=== PATIENT | male | born 1985 | race African-American/Black ===

== ENCOUNTER 2019-10-04 09:44 | Emergency (ER) | payer OTHER ==
[2019-10-04 10:10] VITALS: TEMP 99.5; BMI 48.3
--- NOTE | 2019-10-04 10:13 | PDOC ---
History of Present Illness - General Chief Complaint: Shortness of Breath Stated Complaint: CP/SOB Time Seen by Provider: 10/04/19 10:12 History Source: Patient Exam Limitations: No Limitations - History of Present Illness Initial Comments: 10/04/19 10:23 CHIEF COMPLAINT: Chest pain HISTORY OF PRESENT ILLNESS: This is an otherwise healthy 34-year-old male referred from urgent care, where he presented for evaluation of T 102, chills, and chest discomfort. There, EKG demonstrated ST elevations in anterolateral leads as well as RSR' in V1, right axis deviation, and left atrial enlargement. Patient reports chest pain worse with leaning forward and shortness of breath. Here, the patient endorses 2 days of fever (T-max 102 last night), chills, shortness of breath, worsening dyspnea on exertion, and chest tightness which seems to be worse if leaning forward. He denies nausea, dizziness, diaphoresis. He denies calf/leg pain or swelling. He denies travel or known sick contacts. Family History: Mother: HTN, Father: colon ca; no family history of VTE, cardiac disease Smoking: None V/s on arrival are notable for low grade oral temp 99.8. PCP: Dr. Radha Hogan REVIEW OF SYSTEMS: GENERAL/CONSTITUTIONAL: No fever or chills. No weakness. No weight change. HEAD, EYES, EARS, NOSE AND THROAT: No change in vision. No ear pain or discharge. No sore throat. CARDIOVASCULAR: Chest tightness, dyspnea on exertion. RESPIRATORY: No cough or wheezing. GASTROINTESTINAL: No nausea, vomiting, diarrhea or constipation. GENITOURINARY: No dysuria, frequency, or change in urination. MUSCULOSKELETAL: No joint or muscle swelling or pain. No neck or back pain. SKIN: No rash or easy bruising. NEUROLOGIC: No headache, vertigo, loss of consciousness, or loss of sensation. PSYCHIATRIC: No depression or anxiety. ENDOCRINE: No increased thirst. No abnormal weight change. HEMATOLOGIC/LYMPHATIC: No anemia, easy bleeding, or history of blood clots. ALLERGIC/IMMUNOLOGIC: No hives or skin allergy. No latex allergy. PHYSICAL EXAM: GENERAL: The patient is awake, alert, and fully oriented, in no acute distress. HEAD: Normal with no signs of trauma. ENT: Pupils equal, round and reactive to light, extraocular movements intact, sclera anicteric, conjunctiva clear. Neck supple. LUNGS: Clear to auscultation bilaterally. Normal excursion. No respiratory distress or use of accessory muscles. CV: Tachycardic (120 on exam), RRR, S1/S2, no MRG. Cap refill < 2 sec. ABDOMEN: Soft, non-distended, non-tender. EXTREMITIES: Normal range of motion, no edema. NEUROLOGICAL: Normal speech, normal gait. CN II-XII grossly intact. PSYCH: Normal mood, normal affect. SKIN: Warm, dry, normal turgor, no rashes or lesions noted. 10/04/19 11:10 10/04/19 11:11 Past History - Past Medical History Allergies/Adverse Reactions: Allergies Allergy/AdvReac Type Severity Reaction Status Date / Time No Known Allergies Allergy Verified 11/29/11 08:23 Home Medications: Ambulatory Orders Colchicine [Colcrys] 0.6 mg PO DAILY #14 tablet 10/04/19 Ibuprofen 800 mg PO Q8H #30 tablet 10/04/19 Anemia: No Asthma: No Cancer: No Cardiac Disorders: No CVA: No COPD: No CHF: No Dementia: No Diabetes: No GI Disorders: No Disorders: No HTN: No Hypercholesterolemia: No Liver Disease: No Seizures: No Thyroid Disease: No - Surgical History Abdominal Surgery: No Appendectomy: No Cardiac Surgery: No Cholecystectomy: No Lung Surgery: No Neurologic Surgery: No Orthopedic Surgery: Yes (09/04,left wrist arthroscopy) - Immunization History Immunization Up to Date: No - Psycho Social/Smoking Cessation Hx Smoking History: Never smoked Have you smoked in the past 12 months: No Information on smoking cessation initiated: No Hx Alcohol Use: No Drug/Substance Use Hx: No Substance Use Type: None Hx Substance Use Treatment: No *Physical Exam - Vital Signs Last Vital Signs Temp Pulse Resp BP Pulse Ox 99.5 F 84 18 112/77 98 10/04/19 10:08 10/04/19 10:08 10/04/19 10:08 10/04/19 10:08 10/04/19 10:08 ED Treatment Course - LABORATORY CBC & Chemistry Diagram: 10/04/19 10:40 10/04/19 10:40 Medical Decision Making - Medical Decision Making 10/04/19 11:08 A/P: 34-year-old male with multiple symptoms including fever, chest pain, and dyspnea on exertion/shortness of breath. Differential includes but is not limited to: Pericarditis, viral myocarditis, less likely PE or ACS. 1. Chest x-ray 2. Labs including CBC, CMP, cardiac profile, d-dimer, UA, influenza swab 3. Echocardiogram 4. Discussed with Dr. Aden explosion welder for cardiology and reviewed EKG-agrees with above, will re-discuss pending cardiac enzyme results 10/04/19 12:24 CXR: no acute patology. Troponin negative. D-dimer elevated at 1777; CTA ordered. 10/04/19 13:13 Echocardiogram reviewed and interpreted by cardiology: Trace pericardial effusion, not hemodynamically significant. LVEF: 55 to 60%. Trace mitral regurgitation. 10/04/19 15:12 CTA negative for PE. Discussed with cardiology will treat with ibuprofen/ colchicine. RSV sent. Patient to follow-up with PCP/cardiology next week. Return precautions reviewed. Discharge - Discharge Information Problems reviewed: Yes Clinical Impression/Diagnosis: Chest pain Condition: Stable Disposition: HOME - Admission No - Additional Discharge Information Prescriptions: Colchicine [Colcrys] 0.6 mg PO DAILY #14 tablet Ibuprofen 800 mg PO Q8H #30 tablet - Follow up/Referral Referrals: Radha Hogan MD [Primary Care Provider] - 3 days Walker Aden MD [Staff Physician] - 1 week (Cardiology) - Patient Discharge Instructions Patient Printed Discharge Instructions: DI for Pericarditis Additional Instructions: You were seen today for chest pain, fever, and abnormal electrocardiogram, likely related to pericarditis from an underlying viral infection. Your CT scan of the chest did not show any pulmonary emboli (blood clots in the lungs) and echocardiogram showed normal heart function with a very small fluid collection around the heart. Your flu test was negative. Take ibuprofen and colchicine as prescribed with food. It is important that you follow-up next week with Dr. Hogan and/are with Dr. Aden of cardiology for reevaluation. Please return here if you develop worsening chest pain, shortness of breath, or any other concerning symptoms. - Post Discharge Activity Work/Back to School Note: Back to Work
[2019-10-04 11:11] LABS: BASO % 0.2 % (0-2.0); EOS % 0.1 % (0-4.5); HEMATOCRIT 40.6 % (35.4-49); LYMPH % 8.6 % (8-40); MCH 22.5 pg (25.7-33.7); MCHC 31.9 g/dl (32.0-35.9); MEAN CELL VOLUME 70.6 fl (80-96); MEAN PLT VOLUME 9.9 fl (7.5-11.1); MONO % 6.8 % (3.8-10.2); NEUT % 84.3 % (42.8-82.8); PLATELET COUNT 163 K/MM3 (134-434); RBC 5.76 M/mm3 (4.00-5.60); RDW 13.9 % (11.9-15.9); WHITE BLOOD COUNT 10.4 K/mm3 (4.0-10.0)
[2019-10-04 11:13] LABS: EPI CELLS 1.8 /HPF (0-5/HPF); HYALINE CASTS 7 /lpf (0-8); PH,URINE 6.5 (5.0-8.0); URINE APPEARANCE CLEAR; URINE BACTERIA 0.5 /hpf (NEGATIVE); URINE BILIRUBIN 1+ (NEGATIVE); URINE COLOR DK YELLOW; URINE GLUCOSE (UA) NEGATIVE (NEGATIVE); URINE KETONE 1+ (NEGATIVE); URINE LEUK ESTERASE NEGATIVE (NEGATIVE); URINE NITRITE NEGATIVE (NEGATIVE); URINE PROTEIN 2+ (NEGATIVE); URINE RBC 8 /hpf (0-4); URINE WBC 1 /hpf (0-5)
[2019-10-04 11:33] LABS: INR 1.31 (0.83-1.09); PROTHROMBIN TIME (PATIENT) 15.5 SEC (9.7-13.0)
[2019-10-04 11:35] LABS: ALBUMIN 3.8 g/dl (3.4-5.0); ALK PHOS 70 U/L (45-117); ANION GAP 4 MMOL/L (8-16); BILIRUBIN,TOTAL 0.8 mg/dL (0.2-1); BLOOD UREA NITROGEN 11.6 mg/dL (7-18); CALCIUM 9.3 mg/dL (8.5-10.1); CHLORIDE 100 mmol/L (98-107); CO2 31 mmol/L (21-32); CREATININE 0.9 mg/dL (0.55-1.3); GLUCOSE,RANDOM 87 mg/dL (74-106); POTASSIUM 4.3 mmol/L (3.5-5.1); SGOT/AST 16 U/L (15-37); SGPT/ALT 26 U/L (13-61); SODIUM 135 mmol/L (136-145); TOT PROT 7.9 g/dl (6.4-8.2)
--- NOTE | 2019-10-04 11:52 | EKG ---
Test Reason : Blood Pressure : / mmHG Vent. Rate : 089 BPM Atrial Rate : 089 BPM P-R Int : 168 ms QRS Dur : 084 ms QT Int : 336 ms P-R-T Axes : 043 108 048 degrees QTc Int : 408 ms NORMAL SINUS RHYTHM LEFT ATRIAL ENLARGEMENT RIGHTWARD AXIS ST ELEVATION, CONSIDER EARLY REPOLARIZATION, PERICARDITIS, OR INJURY ABNORMAL ECG NO PREVIOUS ECGS AVAILABLE Confirmed by HONG LUNA MD ([id number]) on 10/04/2019 11:52:08 AM Referred By: Confirmed By:HONG LUNA MD
--- NOTE | 2019-10-04 12:12 | PDOC ---
*Physical Exam - Vital Signs Last Vital Signs Temp Pulse Resp BP Pulse Ox 99.5 F 84 18 112/77 98 10/04/19 10:08 10/04/19 10:08 10/04/19 10:08 10/04/19 10:08 10/04/19 10:08 ED Treatment Course - LABORATORY CBC & Chemistry Diagram: 10/04/19 10:40 10/04/19 10:40 - ADDITIONAL ORDERS Additional order review: Laboratory Results 10/04/19 10/04/19 10/04/19 10:40 10:40 10:40 PT with INR 15.50 H INR 1.31 H D-Dimer 1777 H Sodium Potassium Chloride Carbon Dioxide Anion Gap BUN Creatinine Est GFR (CKD-EPI)AfAm Est GFR (CKD-EPI)NonAf Random Glucose Calcium Total Bilirubin AST ALT Alkaline Phosphatase Creatine Kinase Troponin I Total Protein Albumin Urine Color Dk yellow Urine Appearance Clear Urine pH 6.5 Ur Specific [place] 1.039 H Urine Protein 2+ H Urine Glucose (UA) Negative Urine Ketones 1+ H Urine Blood Negative Urine Nitrite Negative Urine Bilirubin 1+ H Urine Urobilinogen 1.0 Ur Leukocyte Esterase Negative Urine WBC (Auto) 1 Urine RBC (Auto) 8 Urine Casts (Auto) 7 U Epithel Cells (Auto) 1.8 Urine Bacteria (Auto) 0.5 10/04/19 10:40 PT with INR INR D-Dimer Sodium 135 L Potassium 4.3 Chloride 100 Carbon Dioxide 31 Anion Gap 4 L BUN 11.6 Creatinine 0.9 Est GFR (CKD-EPI)AfAm 127.80 Est GFR (CKD-EPI)NonAf 110.27 Random Glucose 87 Calcium 9.3 Total Bilirubin 0.8 AST 16 ALT 26 Alkaline Phosphatase 70 Creatine Kinase 99 Troponin I < 0.02 Total Protein 7.9 Albumin 3.8 Urine Color Urine Appearance Urine pH Ur Specific [place] Urine Protein Urine Glucose (UA) Urine Ketones Urine Blood Urine Nitrite Urine Bilirubin Urine Urobilinogen Ur Leukocyte Esterase Urine WBC (Auto) Urine RBC (Auto) Urine Casts (Auto) U Epithel Cells (Auto) Urine Bacteria (Auto) 10/04/19 10:40 RBC 5.76 H MCV 70.6 L MCHC 31.9 L RDW 13.9 MPV 9.9 Neutrophils % 84.3 H Lymphocytes % 8.6 Monocytes % 6.8 Eosinophils % 0.1 Basophils % 0.2 Medical Decision Making - Medical Decision Making 10/04/19 12:09 34-year-old male presenting to the emergency department with a complaint of chest pain. Patient noted fever 2 days ago. Yesterday began to have chest pain which he describes as squeezing, midsternal, no radiation. Patient notes exertional dyspnea Patient has had a cough, nonproductive Pt seen by Midlevel Provider under my direct supervision Pt interviewed and examined Patient is awake and alert Heart is regular Lungs are clear Ancillary studies reviewed EKG: Sinus rhythm, rate of 89 bpm, rightward axis, diffuse ST elevations, no ST depressions No pathological Q waves Laboratory Tests 10/04/19 10/04/19 10/04/19 10:40 10:40 10:40 WBC 10.4 H Hgb 13.0 Hct 40.6 Plt Count 163 D-Dimer BUN 11.6 Creatinine 0.9 Creatine Kinase 99 Troponin I < 0.02 Influenza A (Rapid) Negative Influenza B (Rapid) Negative 10/04/19 10:40 WBC Hgb Hct Plt Count D-Dimer 1777 H BUN Creatinine Creatine Kinase Troponin I Influenza A (Rapid) Influenza B (Rapid) Call placed to cardiology Copy patient's EKG sent to Dr. Aden Patient's d-dimer is elevated Will CTA Pt seen in the ER by Dr. Aden CTA negative for PE Will discharge to home I agree with plan as outlined by Midlevel Provider Clinical impression: pericarditis, initial presentation Discharge - Discharge Information Problems reviewed: Yes Clinical Impression/Diagnosis: Chest pain Condition: Stable Disposition: HOME - Admission Yes - Additional Discharge Information Prescriptions: Colchicine [Colcrys] 0.6 mg PO DAILY #14 tablet Ibuprofen 800 mg PO TID #30 tablet - Follow up/Referral Referrals: Radha Hogan MD [Primary Care Provider] - 3 days Walker Aden MD [Staff Physician] - 1 week (Cardiology) - Patient Discharge Instructions Patient Printed Discharge Instructions: DI for Pericarditis Additional Instructions: You were seen today for chest pain, fever, and abnormal electrocardiogram, likely related to pericarditis from an underlying viral infection. Your CT scan of the chest did not show any pulmonary emboli (blood clots in the lungs) and echocardiogram showed normal heart function with a very small fluid collection around the heart. Your flu test was negative. Take ibuprofen and colchicine as prescribed with food. It is important that you follow-up next week with Dr. Hogan and/are with Dr. Aden of cardiology for reevaluation. Please return here if you develop worsening chest pain, shortness of breath, or any other concerning symptoms. - Post Discharge Activity Work/Back to School Note: Back to Work
--- NOTE | 2019-10-04 12:55 | ECHO ---
Name: JENNIE SANCHEZ Exam:Adult Echocardiogram Study Date: 10/04/2019 11:58 AM Age: 34 yrs Height: 76 in Weight: 180 lb BSA: 2.1 m2 MMode/2D Measurements & Calculations IVSd: 1.1 cm Ao root diam: 3.1 cm LVIDd: 3.7 cm LA dimension: 2.5 cm LVIDs: 2.5 cm ACS: 2.0 cm LVPWd: 1.0 cm EDV(Teich): 59.1 ml LVOT diam: 2.1 cm ESV(Teich): 23.1 ml Doppler Measurements & Calculations MV E max king: 101.2 cm/sec Ao V2 max: 137.3 cm/sec MV A max king: 70.1 cm/sec Ao max P.5 mmHg MV E/A: 1.4 Ao V2 mean: 105.9 cm/sec MV dec time: 0.18 sec Ao mean P.9 mmHg Ao V2 VTI: 27.6 cm RUFINO(I,D): 2.2 cm2 RUFINO(V,D): 2.3 cm2 LV V1 max P.3 mmHg MR max king: 254.6 cm/sec LV V1 mean P.7 mmHg MR max P.9 mmHg LV V1 max: 90.3 cm/sec LV V1 mean: 59.9 cm/sec LV V1 VTI: 17.1 cm SV(LVOT): 59.5 ml TR max king: 271.6 cm/sec TR max P.9 mmHg PA V2 max: 63.2 cm/sec Med Peak E' King: 9.2 cm/sec PA max P.6 mmHg Med E/e': 11.0 Lat Peak E' King: 10.4 cm/sec Lat E/e': 9.7 Left Ventricle Left ventricular systolic function is normal. Ejection Fraction = 55-60%. Right Ventricle The right ventricle is grossly normal size. The right ventricular systolic function is grossly normal . Atria The left atrium is not well visualized. A prominent eustachian valve is noted. Mitral Valve The mitral valve is normal in structure and function. No significant mitral valve stenosis. There is mild mitral regurgitation. Tricuspid Valve The tricuspid valve is normal in structure and function. There is Trace to mild tricuspid regurgitati on. Aortic Valve The aortic valve opens well. No hemodynamically significant valvular aortic stenosis. Pulmonic Valve The pulmonic valve is not well seen, but is grossly normal. There is no pulmonic valvular stenosis. Great Vessels The aortic root is normal size. Pericardium/Pleura Trivial pericardial effusion not hemodynamically significant. Interpretation Summary Trivial pericardial effusion not hemodynamically significant Left ventricular systolic function is normal. Ejection Fraction = 55-60%. The left atrium is not well visualized. There is mild mitral regurgitation. MD Bartlett *Ata 10/04/2019 12:55 PM
[2019-10-04 14:53] LABS: N-TERMINAL BNP 167.7 pg/ml (5-125)
[2019-10-04] MEDS ORDERED: IBUPROFEN 400 MG TABLET (FP) PO ONE (15:11)
[2019-10-04] MEDS ORDERED: COLCHICINE 0.6 MG CAP PO ONE (15:12)
--- NOTE | 2019-10-04 15:15 | CON.CARD ---
Consult Consult Specialty:: Cardiology Referred by:: ER Reason for Consultation:: Abnormal ekg, sob, chest tightness - History of Present Illness Chief Complaint: sob History of Present Illness: 34 year old man with no sig pmh presented with fever, chills, sob, chest discomfort and abnormal ekg. Pt states that symptoms started a few days ago with body aches, chills then had 102 fever last night and has been feeling significant dyspnea on exertion and chest discomfort since yesterday. Went to urgent care who referred him to ER due to abnormal EKG showing diffuse ST elevations. pt seen and examine in ER in nad. s/p CTA chest showing no PE ECHO done today showed normal LVEF, trace pericardial effusion, no sig valvular abnl. - History Source History Provided By: Patient, Family Member Limitations to Obtaining History: No Limitations - Alcohol/Substance Use Hx Alcohol Use: No - Smoking History Smoking history: Never smoked Have you smoked in the past 12 months: No Home Medications - Allergies Allergies/Adverse Reactions: Allergies Allergy/AdvReac Type Severity Reaction Status Date / Time No Known Allergies Allergy Verified 11/29/11 08:23 - Home Medications Home Medications: Ambulatory Orders Colchicine [Colcrys] 0.6 mg PO DAILY #14 tablet 10/04/19 Ibuprofen 800 mg PO Q8H #30 tablet 10/04/19 Family Medical History Family History: Denies Review of Systems - Review of Systems Constitutional: reports: Fever, Malaise, Weakness. denies: No Symptoms, Chills , Diaphoresis, Lethargy, Loss of Appetite, Night Sweats, Unintentional Wgt. Loss , Other Eyes: denies: No Symptoms, Blind Spots, Blurred Vision, Double Vision, Eye Pain , Floaters, Photophobia, Recent Change in Vision, Other HENT: denies: No Symptoms, Difficult Swallowing, Ear Discharge, Ear Pain, Epistaxis, Gingival Bleeding, Hearing Loss, Mouth Swelling, Nasal Congestion, Ocular Prosthesis, Throat Pain, Toothache, Ringing in Ears, Other Neck: denies: No Symptoms, Decreased ROM, Lumps, Pain on Movement, Stiffness, Swollen Glands, Tenderness, Other Cardiovascular: reports: Chest Pain, Shortness of Breath. denies: No Symptoms, Edema, Palpitations, Other Respiratory: reports: Exercise Intolerance, SOB, SOB on Exertion. denies: No Symptoms, Cough, Hemoptysis, Orthopnea, PND, Snoring, Wheezing, Other Gastrointestinal: denies: No Symptoms, Abdominal Pain, Bloating, Constipation, Diarrhea, Dysphagia, Indigestion, Melena, Nausea, Rectal Bleeding, Vomiting, Vomiting Blood, Other Genitourinary: denies: No Symptoms, Burning, Discharge, Dysuria, Flank Pain, Frequency, Hematuria, Incontinence, Lesions, Menses, Pain, Testicular Mass, Testicular Pain, Testicular Swelling, Urgency, Vaginal Bleeding, Other Breasts: denies: No Symptoms Reported, See HPI, Breast Implants, Discharge from Nipple, Lumps, Pain, Skin Changes, Other Musculoskeletal: reports: Muscle Pain. denies: No Symptoms, Back Pain, Crepitus , Decreased ROM, Extremity Pain, Joint Pain, Joint Swelling, Muscle Cramps, Muscle Weakness, Other Integumentary: denies: No Symptoms, Blister, Bruising, Change in Color, Eczema, Erythema, Incision, Lesions, Lump, Pallor, Pruritis, Rash, Wound, Other Neurological: denies: No Symptoms, Change in LOC, Change in Speech, Confusion, Dizziness, Headache, Incoordination, Numbness, Parasthesia, Pre-Existing Deficit , Seizure, Syncope, Tremors, Unsteady Gait, Weakness, Other Endocrine: denies: No Symptoms, Excessive Sweating, Flushing, Increased Hunger, Increased Thirst, Intolerance to Cold, Intolerance to Heat, Unexplained Weight Gain, Unexplained Weight Loss, Other Hematology/Lymphatic: denies: No Symptoms, Easily Bruised, Excessive Bleeding, Swollen Glands, Other Psychiatric: denies: No Symptoms, Altered Sleep Pattern, Anxiety, Depression, Hallucinations, Panic, Paranoia, Suicidal, Other Vital Signs: Vital Signs Temperature 99.5 F 10/04/19 10:08 Pulse Rate 84 10/04/19 10:08 Respiratory Rate 18 10/04/19 10:08 Blood Pressure 112/77 10/04/19 10:08 O2 Sat by Pulse Oximetry (%) 98 10/04/19 10:08 Constitutional: Yes: No Distress, Calm Eyes: Yes: Conjunctiva Clear, EOM Intact HENT: Yes: Atraumatic, Normocephalic Neck: Yes: Supple, Trachea Midline Respiratory: Yes: Regular, CTA Bilaterally. No: Rales, Rhonchi, SOB, Wheezes Gastrointestinal: Yes: Normal Bowel Sounds, Soft. No: Distention, Tenderness Cardiovascular: Yes: Regular Rate and Rhythm. No: Bradycardia, Tachycardia, Pulse Irregular, Gallop, Rub, Varicosities JVD: No Carotid Bruit: No PMI: Non-Displaced Heart Sounds: Yes: S1, S2. No: Split S2, S3, S4, Clicks, Gallop, Rub, Bruit Murmur: No: Systolic Murmur, Diastolic Murmur Musculoskeletal: Yes: WNL Extremities: Yes: WNL Edema: No Peripheral Pulses WNL: Yes Peripheral Pulses: 2+ Left Doralis Pedis, 2+ Right Dorsalis Pedis Neurological: Yes: Alert, Oriented Psychiatric: Yes: Alert, Oriented - Other Data Labs, Other Data: CBC, BMP 10/04/19 10:40 10/04/19 10:40 INR, PTT INR 1.31 (0.83-1.09) H 10/04/19 10:40 Troponin, BNP 10/04/19 10:40 Troponin I < 0.02 B-Natriuretic Peptide 167.7 H Troponin, BNP 10/04/19 10:40 Troponin I < 0.02 B-Natriuretic Peptide 167.7 H ekg-nsr 89bpm, RAD, LAE, diffuse ST elevations and MI depressions. possible pericarditis. Echo: Report Reviewed Imaging - Results Chest X-ray: Report Reviewed, Image Reviewed Cat Scan: Report Reviewed EKG: Report Reviewed, Image Reviewed Other: Report Reviewed, Image Reviewed Assessment/Plan 34 year old man with no sig pmh presented with fever, chills, sob, chest discomfort and abnormal ekg. Pt states that symptoms started a few days ago with body aches, chills then had 102 fever last night and has been feeling significant dyspnea on exertion and chest discomfort since yesterday. Went to urgent care who referred him to ER due to abnormal EKG showing diffuse ST elevations. pt seen and examine in ER in nad. SOB/Chest tightness/EKG abnl -suspicion for pericarditis in setting of likely viral URI -not c/w ACS -no ischemia on ekg -ck/trop wnl -symptom description does not exactly fit pericarditis but EKG and correlation with virus do -ekg-nsr 89bpm, RAD, LAE, diffuse ST elevations and MI depressions. possible pericarditis. -s/p CTA chest showing no PE -ECHO done today showed normal LVEF, trace pericardial effusion, no sig valvular abnl. -start Ibuprofen 800mg po TID x 5 days and colchicine 0.6mg bid on day 1 then 0.6mg daily for the next 2 weeks. -close outpatient fup next week. -recc return to the ER if sob or chest tightness worsens
[2019-10-04] MEDS ORDERED: IBUPROFEN 600 MG TABLET (FP) PO ONE (15:24)
[2019-10-04] MEDS ORDERED: COLCHICINE 0.6 MG CAP ONE (15:24)
[2019-10-04 15:59] VITALS: BP 118/69; PULSE 82
== END 2019-10-04 15:50 | disposition home or self-care (01) ==
LOC: SUPCPDRO 09:44 → JER 09:44
DX: R07.9 Chest pain, unspecified (principal)
CPT/HCPCS: 36415; 71046-TC-FY; 71275-TC; 80053; 81003; 82550; 83880; 84484; 85025; 85379; 85610; 87086; 87804; 87807; 93005; 93010; 93306-TC; 99283-25

== ENCOUNTER 2020-06-03 09:43 | Observation (INO) | payer OTHER ==
[2020-06-03 09:59] VITALS: BMI 20.7
[2020-06-03] MEDS ORDERED: KETOROLAC TROMETHAMINE 30 MG/1 ML VIAL IVPUSH ONE (10:37)
[2020-06-03] MEDS ORDERED: COLCHICINE 0.6 MG TAB PO ONE (10:46)
--- NOTE | 2020-06-03 10:47 | PDOC ---
Documentation entered by Jonny Armenta SCRIBE, acting as scribe for Teo Cano MD. Teo Cano MD: This documentation has been prepared by the Geovany wahl Angel, SCRIBE, under my direction and personally reviewed by me in its entirety. I confirm that the documentation accurately reflects all work, treatment, procedures, and medical decision making performed by me. History of Present Illness - General Chief Complaint: Shortness of Breath Stated Complaint: SOB Time Seen by Provider: 06/03/20 10:04 History Source: Patient Exam Limitations: No Limitations - History of Present Illness Initial Comments: 06/03/20 10:47 34 M with h/o pericarditis presents to ED with 4 days of positional chest pain and BUSTAMANTE. Pt states that this feels similar to his previous episode of pericarditis. He denies any fevers and reports Tmaxs 99.8 at home. Denies chil ls. Pt states that after his initial episode of pericarditis in September of this year, he recovered well but had another episode in February. He recovered from this as well, but 4 days ago his symptoms recurred. Pt notes that his chest pain is worse with lying flat. Denies any SOB at rest but states he gets winded walking up the stairs. Denies leg swelling. No recent travel/immobilization. Past History - Medical History Allergies/Adverse Reactions: Allergies Allergy/AdvReac Type Severity Reaction Status Date / Time No Known Allergies Allergy Verified 06/03/20 09:53 Home Medications: Ambulatory Orders Colchicine [Colcrys] 0.6 mg PO DAILY #14 tablet 10/04/19 Ibuprofen 800 mg PO TID #30 tablet 10/04/19 Anemia: No Asthma: No Cancer: No Cardiac Disorders: No CVA: No COPD: No CHF: No Dementia: No Diabetes: No GI Disorders: No Disorders: No HTN: No Hypercholesterolemia: No Liver Disease: No Seizures: No Thyroid Disease: No - Surgical History Abdominal Surgery: No Appendectomy: No Cardiac Surgery: No Cholecystectomy: No Lung Surgery: No Neurologic Surgery: No Orthopedic Surgery: Yes (09/04,left wrist arthroscopy) - Immunization History Immunization Up to Date: No - Psycho-Social/Smoking History Smoking History: Never smoked Have you smoked in the past 12 months: No - Substance Abuse Hx (Audit-C & DAST Scrn) How often the patient has a drink containing alcohol: Never Score: In Men: 4 or > Positive; In Women: 3 or > Positive: 0 Screen Result (Pos requires Nsg. Audit-10AR): Negative In the last yr the pt used illegal drug/Rx for NonMed reason: No Score: Yes response is considered Positive: 0 Screen Result (Positive result requires Nsg. DAST-10): Negative Review of Systems - Review of Systems Comments:: 06/03/20 10:51 "GENERAL/CONSTITUTIONAL: No fever or chills. No weakness. HEAD, EYES, EARS, NOSE AND THROAT: No change in vision. No ear pain or d ischarge. No sore throat. CARDIOVASCULAR: + chest pain, + shortness of breath, no loss of consciousness RESPIRATORY: No cough, wheezing, or hemoptysis. GASTROINTESTINAL: No nausea, vomiting, diarrhea or constipation. GENITOURINARY: No dysuria, frequency, or change in urination. MUSCULOSKELETAL: No joint or muscle swelling or pain. No neck or back pain. SKIN: No rash NEUROLOGIC: No vertigo, no change in strength/sensation. ENDOCRINE: No increased thirst. No abnormal weight change. HEMATOLOGIC/LYMPHATIC: No anemia, easy bleeding, or history of blood clots. ALLERGIC/IMMUNOLOGIC: No hives or skin allergy. *Physical Exam - Vital Signs Last Vital Signs Temp Pulse Resp BP Pulse Ox 98.2 F 72 16 110/78 100 06/03/20 09:53 06/03/20 09:53 06/03/20 09:53 06/03/20 09:53 06/03/20 09:53 - Physical Exam 06/03/20 10:51 "GENERAL: Awake, alert, and fully oriented, in no acute distress. HEAD: No signs of trauma EYES: PERRLA, EOMI, sclera anicteric, conjunctiva clear ENT: Auricles normal inspection, hearing grossly normal, nares patent, oropharynx clear without exudates. Moist mucosa NECK: Nontender, no stepoffs, Normal ROM, supple, no lymphadenopathy, JVD, or masses LUNGS: Breath sounds equal, clear to auscultation bilaterally. No wheezes, and no crackles HEART: Regular rate and rhythm, normal S1 and S2, no murmurs, rubs or gallops ABDOMEN: Soft, nontender, normoactive bowel sounds. No guarding, no rebound. No masses EXTREMITIES: Normal range of motion, no edema. No clubbing or cyanosis. No cords, erythema, or tenderness NEUROLOGICAL: Cranial nerves II through XII intact. 5/5 strength and sensation in all extremities, Normal speech, normal gait, normal cerebellar function SKIN: Warm, Dry, normal turgor, no rashes or lesions noted. Heart Score/ECG Review - ECG Impressions Comment:: 06/03/20 10:54 NSr, diffuse STEs, no STDs, no TWIs, axis wnl, intervals wnl, rate 92 ED Treatment Course - LABORATORY CBC & Chemistry Diagram: 06/03/20 11:10 06/03/20 11:10 Medical Decision Making - Medical Decision Making 06/03/20 10:51 34 M with chest pain and BUSTAMANTE, similar to previous episode of pericarditis. EKG today with diffuse ST elevations, consistent with EKG from September. No reci procal depressions. - Labs, trop - CXR - Toradol, colchicine 06/03/20 14:36 ESR and CRP elevated, labs otherwise wnl CXR shows enlarged heart Bedside echo shows large pericardial effusion Will obtain official echo Dr. Aden in ED to evaluate pt Discharge - Discharge Information Problems reviewed: Yes Clinical Impression/Diagnosis: Pericarditis, Pericardial effusion, Chest pain - Admission Yes - Follow up/Referral - Patient Discharge Instructions - Post Discharge Activity
[2020-06-03] MEDS ORDERED: KETOROLAC TROMETHAMINE 30 MG/1 ML VIAL ONE (11:36)
[2020-06-03] MEDS ORDERED: COLCHICINE 0.6 MG CAP ONE (11:36)
[2020-06-03 11:49] LABS: BASO % 0.2 % (0-2.0); EOS % 0.1 % (0-4.5); HEMATOCRIT 36.7 % (35.4-49); HEMOGLOBIN 11.6 GM/dL (11.7-16.9); LYMPH % 9.8 % (8-40); MCH 22.1 pg (25.7-33.7); MCHC 31.5 g/dl (32.0-35.9); MEAN CELL VOLUME 70.2 fl (80-96); MEAN PLT VOLUME 8.4 fl (7.5-11.1); MONO % 9.2 % (3.8-10.2); NEUT % 80.7 % (42.8-82.8); PLATELET COUNT 285 K/MM3 (134-434); RBC 5.23 M/mm3 (4.00-5.60); RDW 14.4 % (11.9-15.9); WHITE BLOOD COUNT 7.1 K/mm3 (4.0-10.0)
[2020-06-03 12:15] LABS: ALBUMIN 3.4 g/dl (3.4-5.0); BILIRUBIN,TOTAL 0.8 mg/dL (0.2-1); BLOOD UREA NITROGEN 11.5 mg/dL (7-18); CALCIUM 9.2 mg/dL (8.5-10.1); POTASSIUM 4.5 mmol/L (3.5-5.1); TOT PROT 7.9 g/dl (6.4-8.2)
--- NOTE | 2020-06-03 12:56 | EKG ---
Test Reason : Blood Pressure : / mmHG Vent. Rate : 092 BPM Atrial Rate : 092 BPM P-R Int : 158 ms QRS Dur : 082 ms QT Int : 336 ms P-R-T Axes : 030 101 053 degrees QTc Int : 415 ms POOR DATA QUALITY, INTERPRETATION MAY BE ADVERSELY AFFECTED NORMAL SINUS RHYTHM POSSIBLE LEFT ATRIAL ENLARGEMENT RIGHTWARD AXIS POSSIBLE ANTERIOR INFARCT (CITED ON OR BEFORE 03-JUN-2020) ABNORMAL ECG WHEN COMPARED WITH ECG OF 04-OCT-2019 10:26, NONSPECIFIC T WAVE ABNORMALITY NO LONGER EVIDENT IN ANTERIOR LEADS Confirmed by MD DILSHAD, JAQUELINE ([id number]) on 06/03/2020 12:55:44 PM Referred By: Confirmed By:JAQUELINE YUNG MD
--- NOTE | 2020-06-03 14:11 | CON.CARD ---
Consult Consult Specialty:: Cardiology Referred by:: ER/Dr. Hogan Reason for Consultation:: chest pain, sob, pericarditis - History of Present Illness Chief Complaint: chest pain, sob History of Present Illness: 34 year old man with a pmh pericarditis dx 09/2019 resolved with ibuprofen and colchicine, now again presents with fever, chills, sob, chest discomfort and abnormal ekg. states he had a brief episode 02/2020 which resolved on its own. He tested negative for COVID at the time. this episode started approx 1 week ago. Again tested negative for COVID. He has taken tylenol for fever suppression. He has noted worsening sob and thus came to the ER. Pt was seen and examined in the ER in nad. No current complaints. In ER given Toradol with relief of his symptoms. - Alcohol/Substance Use Hx Alcohol Use: No - Smoking History Smoking history: Never smoked Have you smoked in the past 12 months: No Home Medications - Allergies Allergies/Adverse Reactions: Allergies Allergy/AdvReac Type Severity Reaction Status Date / Time No Known Allergies Allergy Verified 06/03/20 09:53 - Home Medications Home Medications: Ambulatory Orders Colchicine [Colcrys] 0.6 mg PO DAILY #14 tablet 10/04/19 Ibuprofen 800 mg PO TID #30 tablet 10/04/19 Vital Signs: Vital Signs Temperature 98.2 F 06/03/20 09:53 Pulse Rate 72 06/03/20 09:53 Respiratory Rate 16 06/03/20 09:53 Blood Pressure 110/78 06/03/20 09:53 O2 Sat by Pulse Oximetry (%) 100 06/03/20 09:53 - Other Data Labs, Other Data: CBC, BMP 06/03/20 11:10 06/03/20 11:10 Troponin, BNP 06/03/20 11:10 Troponin I 0.02 Troponin, BNP 06/03/20 11:10 Troponin I 0.02 Assessment/Plan 34 year old man with a pmh pericarditis dx 09/2019 resolved with ibuprofen and colchicine, now again presents with fever, chills, sob, chest discomfort and abnormal ekg. states he had a brief episode 02/2020 which resolved on its own. He tested negative for COVID at the time. this episode started approx 1 week ago. Again tested negative for COVID. He has taken tylenol for fever suppression. He has noted worsening sob and thus came to the ER. Pt was seen and examined in the ER in nad. No current complaints. In ER given Toradol with relief of his symptoms. ER Cxray and bedside US showed a large pericardial effusion. SOB/Chest tightness/EKG abnl -likely recurrent pericarditis -not c/w ACS -no ischemia on ekg -ck/trop wnl -ECHO 09/2019 showed normal LVEF, trace pericardial effusion, no sig valvular abnl. -bedside ER US and Cxray show now large pericardial effusion -pt symptoms improved with Toradol -no clinical or ekg evidence of cardiac tamponade -check full official echo -start Ibuprofen 800mg po TID and colchicine 0.6mg bid on day 1 then 0.6mg daily -would consider rheum work up (ie SLE despite no family history) -fup echo to evaluate pericardial effusion, if not large and if no evidence of tamponade pt may be able to be discharged with close outpatient fup. If large or if evidence of tamponade will need to be admitted for close observation.
[2020-06-03 14:21] LABS: ERYTHROCYTE SEDIMENTATION RATE 40 mm/hr (0-10)
--- NOTE | 2020-06-03 16:48 | ECHO ---
Version: 1 Name: JENNIE SANCHEZ Exam: Adult Echocardiogram Study Date: 06/03/2020, 3:13 PM Age: 34 Years MMode/2D Measurements & Calculations IVSd: 0.85 cm LVIDs: 2.6 cm LVIDd: 4.1 cm LVPWd: 1.07 cm LVOT diam: 2.10 cm Ao root diam: 2.5 cm LA dimension: 2.43 cm Doppler Measurements & Calculations MV E max king: 88.3 cm/sec Med E/e': 10.4 MV A max king: 76.2 cm/sec Med Peak E' King: 8.5 cm/sec MV E/A: 1.16 Ao max P.6 mmHg Ao V2 max: 118.6 cm/sec Procedure A two-dimensional transthoracic echocardiogram with color flow and Doppler was performed. The patien t was in normal sinus rhythm during the exam. Left Ventricle The left ventricle is normal in size. Left ventricular systolic function is normal. Ejection Fractio n = 65%. Left Ventricular Filling pattern is normal for age. Right Ventricle The right ventricle is normal size. The right ventricular systolic function is normal. Atria Normal left and right atrial size and function. Mitral Valve The mitral valve is normal. There is no mitral regurgitation noted. Tricuspid Valve The tricuspid valve is normal. No tricuspid regurgitation. Aortic Valve The aortic valve is normal in structure and function. No aortic regurgitation is present. Pulmonic Valve The pulmonic valve leaflets are thin and pliable; valve motion is normal. There is no pulmonic valvu lar regurgitation. Pericardium/Pleura Large circumferential pericardial effusion with no definitive echocardiographic evidence of tamponad e. Summary Statements Left ventricular systolic function is normal. The right ventricular systolic function is normal. Large circumferential pericardial effusion with no definitive echocardiographic evidence of tamponad e. MD Walekr Aden 06/03/2020, 4:48 PM Ordering Physician: Teo Cano Performed By: Carmela Neal
[2020-06-03] MEDS: IBUPROFEN 400 MG TABLET (FP) PO PRN (17:32)
[2020-06-04] MEDS: IBUPROFEN 400 MG TABLET (FP) PO PRN (03:39)
[2020-06-04] MEDS ORDERED: PT OWN MED DRAWER 7, Y5N ONE ×2 (08:34→10:16)
[2020-06-04] MEDS ORDERED: COLCHICINE 0.6 MG TAB PO SCH (10:00)
--- NOTE | 2020-06-04 12:15 | PN ---
Progress Note, Physician History of Present Illness: pt seen and examined today in [facility]. no overnight events. no new complaints. states that he feels much better today. able to walk without sob. slept lying flat overnight with no symptoms. - Current Medication List Current Medications: Active Medications Colchicine (Colcrys) 0.6 mg PO DAILY [facility] Last Admin: 06/04/20 11:42 Dose: 0.6 mg Documented by: Ibuprofen (Motrin -) 800 mg PO TID [facility] - Objective Vital Signs: Vital Signs Temperature 99.4 F 06/04/20 10:00 Pulse Rate 94 H 06/04/20 10:00 Respiratory Rate 06/04/20 10:00 Blood Pressure 128/60 06/04/20 10:00 O2 Sat by Pulse Oximetry (%) 96 06/04/20 10:00 Constitutional: Yes: No Distress, Calm Eyes: Yes: Conjunctiva Clear, EOM Intact HENT: Yes: Atraumatic, Normocephalic Neck: Yes: Supple, Trachea Midline Cardiovascular: Yes: Regular Rate and Rhythm, S1, S2. No: Bradycardia, Tachycardia, Pulse Irregular, Bruit, JVD, Gallop, Murmur, Rub, S3, S4, Varicosities Respiratory: Yes: Regular, CTA Bilaterally. No: Rales, Rhonchi, SOB, Wheezes Gastrointestinal: Yes: Normal Bowel Sounds, Soft. No: Distention, Tenderness Musculoskeletal: Yes: WNL Extremities: Yes: WNL Edema: No Peripheral Pulses WNL: Yes Peripheral Pulses: Left Doralis Pedis: 2+, Right Dorsalis Pedis: 2+ Neurological: Yes: Alert, Oriented Psychiatric: Yes: Alert, Oriented Labs: CBC, BMP 06/03/20 11:10 06/03/20 11:10 - ....Imaging Chest X-ray: Report Reviewed, Image Reviewed EKG: Report Reviewed, Image Reviewed Other: Report Reviewed, Image Reviewed (tele-no sig arrhythmias) Assessment/Plan 34 year old man with a pmh pericarditis dx 09/2019 resolved with ibuprofen and colchicine, now again presents with fever, chills, sob, chest discomfort and abnormal ekg. states he had a brief episode 02/2020 which resolved on its own. He tested negative for COVID at the time. this episode started approx 1 week ago. Again tested negative for COVID. He has taken tylenol for fever suppression. He has noted worsening sob and thus came to the ER. Pt was seen and examined in the ER in nad. No current complaints. In ER given Toradol with relief of his symptoms. ER Cxray and bedside US showed a large pericardial effusion. SOB/Chest tightness/EKG abnl -likely recurrent pericarditis -not c/w ACS -no ischemia on ekg -ck/trop wnl -ECHO 09/2019 showed normal LVEF, trace pericardial effusion, no sig valvular abnl. -Echo 06/03/20 showed large circumferential pericardial effusion without evidence of tamponade -pt symptoms improved with nsaids/colchicine -no clinical or ekg evidence of cardiac tamponade -repeat echo today showed again no evidence of tamponade, large effusion -cont Ibuprofen 800mg po TID (plan for 1-2 weeks) and colchicine 0.6mg daily likely for at least 1 month -would consider rheum work up (ie SLE despite no family history) -d/w pt. Ok to dc home today. He will come in next week for repeat echo to re- evaluate effusion. -he is aware if any recurrent symptoms to return to the ER immediately, d/w the risk associated with pericardial effusion and if tamponade develops -he will fup closely as outpatient
--- NOTE | 2020-06-04 13:11 | ECHO ---
Name: JENNIE SANCHEZ Exam:Adult Echocardiogram Study Date: 06/04/2020 11:07 AM Age: 34 yrs Reason For Study: *LIMITED* R/O tamponade Height: 76 in Weight: 170 lb BSA: 2.1 m2 MMode/2D Measurements & Calculations TAPSE: 2.3 cm Procedure A two-dimensional transthoracic echocardiogram with color flow and Doppler was performed. Left Ventricle The left ventricular size, thickness and function are normal. Ejection Fraction = 55-60%. No regional wall motion abnormalities noted. Right Ventricle The right ventricle is normal in size and function. Atria Normal left and right atrial size and function. Mitral Valve There is no mitral regurgitation noted. Aortic Valve No aortic regurgitation is present. Pericardium/Pleura There is a large circumferential pericardial effusion without signs of tamponade. No significant mar ge from 06/03/20 study. Interpretation Summary The left ventricular size, thickness and function are normal The right ventricle is normal in size and function. There is a large circumferential pericardial effusion without signs of tamponade. No significant mar ge from 06/03/20 study. MD Justin Ta 06/04/2020 01:10 PM
--- NOTE | 2020-06-04 13:27 | HP ---
Admitting History and Physical - Primary Care Physician PCP: Radha Hogan - Admission Chief Complaint: sob History of Present Illness: - History of Present Illness Initial Comments: 06/03/20 10:47 34 M with h/o pericarditis presents to ED with 4 days of positional chest pain and BUSTAMANTE. Pt states that this feels similar to his previous episode of pericarditis. He denies any fevers and reports Tmaxs 99.8 at home. Denies chills. Pt states that after his initial episode of pericarditis in September of this year, he recovered well but had another episode in February. He recovered from this as well, but 4 days ago his symptoms recurred. Pt notes that his chest pain is worse with lying flat. Denies any SOB at rest but states he gets winded walking up the stairs. Denies leg swelling. No recent travel/immobilization. Pt examined tday -- feels better denies chest pain or SOB \he ambulated fine History Source: Patient - Smoking History Smoking history: Never smoked Have you smoked in the past 12 months: No - Alcohol/Substance Use Hx Alcohol Use: No Home Medications - Allergies Allergies/Adverse Reactions: Allergies Allergy/AdvReac Type Severity Reaction Status Date / Time No Known Allergies Allergy Verified 06/03/20 09:53 - Home Medications Home Medications: Ambulatory Orders Colchicine [Colcrys] 0.6 mg PO DAILY #14 tablet 10/04/19 Ibuprofen 800 mg PO TID #30 tablet 10/04/19 Colchicine [Colcrys] 0.6 mg PO DAILY #30 tab 06/04/20 Ibuprofen [Motrin -] 800 mg PO TID #90 tablet 06/04/20 Pantoprazole Sodium [Protonix] 40 mg PO DAILY #30 tablet. 06/04/20 Review of Systems - Review of Systems Constitutional: denies: Chills Physical Examination Vital Signs: Vital Signs Temperature 99.4 F 06/04/20 10:00 Pulse Rate 94 H 06/04/20 10:00 Respiratory Rate 06/04/20 10:00 Blood Pressure 128/60 06/04/20 10:00 O2 Sat by Pulse Oximetry (%) 96 06/04/20 10:00 Constitutional: Yes: No Distress, Calm Cardiovascular: Yes: Regular Rate and Rhythm Respiratory: Yes: CTA Bilaterally Gastrointestinal: Yes: Normal Bowel Sounds, Soft. No: Tenderness Edema: No Labs: CBC, BMP 06/03/20 11:10 06/03/20 11:10 Imaging - Results Chest X-ray: Image Reviewed Ultrasound: Report Reviewed (Echo) EKG: Image Reviewed Problem List - Problems (1) Chest pain Code(s): R07.9 - CHEST PAIN, UNSPECIFIED (2) Pericardial effusion Code(s): I31.3 - PERICARDIAL EFFUSION (NONINFLAMMATORY) (3) Pericarditis Code(s): I31.9 - DISEASE OF PERICARDIUM, UNSPECIFIED Assessment/Plan PLAN Large pericardial effusion-- not in tamponade admit pt to telemetry Returned Goods Receiving Clerk called from ER-- advised to start Colchicine and Ibuprofen similar issue in the past check inflammatory markers repeat Echo in AM DVT prophylaxis
--- NOTE | 2020-06-04 13:28 | DS ---
Physical Examination Vital Signs: Vital Signs Temperature 99.4 F 06/04/20 10:00 Pulse Rate 94 H 06/04/20 10:00 Respiratory Rate 20 06/04/20 10:00 Blood Pressure 128/60 06/04/20 10:00 O2 Sat by Pulse Oximetry (%) 96 06/04/20 10:00 Constitutional: Yes: No Distress, Calm Cardiovascular: Yes: Regular Rate and Rhythm Respiratory: Yes: CTA Bilaterally Gastrointestinal: Yes: Normal Bowel Sounds, Soft. No: Tenderness Edema: No Labs: CBC, BMP 06/03/20 11:10 06/03/20 11:10 Discharge Summary Problems reviewed: Yes Reason For Visit: PERICARDIAL EFFUSION Current Active Problems Chest pain (Acute) Pericardial effusion (Acute) Pericarditis (Acute) Hospital Course: Pt admitted for pericarditis found to have large pericardial effusion Started on Ibuprofen and colchicine He is better symptomatically He is covid negative Echo shows stable large effusion Pt also had elevated temp-- inflammatory markers sent he was seen by Rheumatology Symptomatically better stable for dc home on po Colchicine and Ibuprofen Ptr advised to follow up with DR Pillai and DR Aden Condition: Improved - Instructions Referrals: Radha Hogan MD [Primary Care Provider] - Walker Aden MD [Staff Physician] - Tan Pillai MD [Staff Physician] - Disposition: HOME - Home Medications Comprehensive Discharge Medication List: Ambulatory Orders Colchicine [Colcrys] 0.6 mg PO DAILY #14 tablet 10/04/19 Ibuprofen 800 mg PO TID #30 tablet 10/04/19
[2020-06-04] MEDS ORDERED: IBUPROFEN 400 MG TABLET (FP) PO SCH (14:00)
[2020-06-04] MEDS ORDERED: ACETAMINOPHEN 325 MG TABLET (FP) PO PRN (14:25)
[2020-06-04 14:40] VITALS: BP 121/69
--- NOTE | 2020-06-04 15:03 | PN ---
Progress Note (short form) - Note Progress Note: temp of 102.8 spoke to pt he really wants to go home He is asymptomatic at this time No chest pain , sob,m cough I spoke with RN-- if his temp decreases in an hour- he may go home
[2020-06-04 15:13] VITALS: PULSE 92; TEMP 100.2
[2020-06-04 16:30] LABS: EPI CELLS 7 /uL (0-25.1); HYALINE CASTS 0 /uL (0-3.1); PH,URINE 6.5 (5.0-8.0); URINE APPEARANCE CLEAR; URINE BACTERIA 8 /uL (0-1359); URINE BILIRUBIN NEGATIVE (NEGATIVE); URINE COLOR YELLOW; URINE GLUCOSE (UA) NEGATIVE (NEGATIVE); URINE KETONE NEGATIVE (NEGATIVE); URINE LEUK ESTERASE NEGATIVE (NEGATIVE); URINE NITRITE NEGATIVE (NEGATIVE); URINE PROTEIN 1+ (NEGATIVE); URINE RBC 17 /uL (0-23.9); URINE WBC 3 /uL (0-25.8)
[2020-06-06 00:06] LABS: CYCLIC CITRULLINE PEPTIDE AB 5 units (0-19)
== END 2020-06-04 17:02 | disposition home or self-care (01) ==
LOC: SUPCPDRO 09:43 → JER 09:43 → UNDOADMOB 14:35 → JERBED 14:35 → INTOOBSV 14:35 → JERBED 17:52 → J4W 17:52
PROVIDERS: ADMIT Internal Medicine; ATTEND Internal Medicine
PROC: 3E0333Z Introduction of Anti-inflammatory into Peripheral Vein, Percutaneous Approach (ICD-10-PCS; principal; 2020-06-04)
DX: I30.9 Acute pericarditis, unspecified (principal); R07.9 Chest pain, unspecified; I31.9 Disease of pericardium, unspecified
CPT/HCPCS: 36415; 71045-TC-FY; 80053; 81003; 82550; 84484; 85025; 85651; 86038; 86140; 86200; 86225; 86769; 93005; 93010; 93306-TC; 99285-25; G0378; U0003